=== PATIENT | female | born 1950 | race Caucasian/White ===

== ENCOUNTER 2017-07-01 10:11 | Emergency (ER) | payer MEDICARE ==
[2017-07-01 10:40] VITALS: BP 118/63
--- NOTE | 2017-07-01 11:44 | UC ---
Respiratory Complaint HPI - HPI Summary HPI Summary: OVER A WEEK OF SINUS PRESSURE, NASAL CONGESTION, DRAINAGE AND EAR PAIN. IS CURRENTLY TAKING CIPRO 250MG BID FOR UTI. IS ON DAY 2 OF 3. HAS BEEN USING NASAL SPRAYS FOR THE PAST WEEK BUT STOPPED SHE HAS HAD BLOODY NASAL MUCUS FOR PAST COUPLE OF DAYS. - History of Current Complaint Chief Complaint: UCRespiratory Stated Complaint: SINUS ISSUE Time Seen by Provider: 07/01/17 11:26 Hx Obtained From: Patient Onset/Duration: Gradual Onset, Lasting Days, Still Present Timing: Constant Severity Initially: Moderate Severity Currently: Moderate Pain Intensity: 0 Pain Scale Used: 0-10 Numeric Character: Cough: Nonproductive Aggravating Factors: Recumbent Position Alleviating Factors: Nothing Associated Signs And Symptoms: Positive: URI, Nasal Congestion, Sinus Discomfort. Negative: Dyspnea, Wheezing, Hemoptysis - Allergies/Home Medications Allergies/Adverse Reactions: Allergies Allergy/AdvReac Type Severity Reaction Status Date / Time Acetaminophen Allergy Vomiting Verified 07/01/17 10:40 Morphine Allergy Itching Verified 07/01/17 10:40 contrast dye Allergy Hives Uncoded 07/01/17 10:40 PMH/Surg Hx/FS Hx/Imm Hx Endocrine History: Dyslipidemia Psychological History: Bipolar Disorder - Surgical History Surgical History: Yes Surgery Procedure, Year, and Place: laminectomy 30+yrs ago. hysterectomy. breast reduction. vein ligation. bladder repair. spinal stenosis March 2014. right knee meniscus repair March 2014 - Family History Known Family History: Positive: Hypertension - Social History Alcohol Use: Occasionally Alcohol Amount: beer Substance Use Type: None Smoking Status (MU): Former Smoker Have You Smoked in the Last Year: No When Did the Patient Quit Smoking/Using Tobacco: age 33 Review of Systems Constitutional: Negative ENT: Ear Ache, Nasal Discharge Respiratory: Cough Cardiovascular: Negative Gastrointestinal: Negative All Other Systems Reviewed And Are Negative: Yes Physical Exam Triage Information Reviewed: Yes Appearance: No Pain Distress, Well-Nourished, Ill-Appearing - MILD Vital Signs: Initial Vital Signs Temp 99.1 F 07/01/17 10:36 Pulse 59 07/01/17 10:36 Resp 20 07/01/17 10:36 BP 118/63 07/01/17 10:36 Pulse Ox 96 07/01/17 10:36 Eyes: Positive: Conjunctiva Clear ENT: Positive: Hearing grossly normal, Pharynx normal, TMs normal, Other: - NASAL MUCOSA RAW AND INFLAMMED Neck: Positive: Supple, Nontender, No Lymphadenopathy Respiratory Exam: Normal Cardiovascular Exam: Normal Abdomen Description: Positive: Soft Musculoskeletal: Positive: No Edema Neurological: Positive: Alert Psychological: Positive: Age Appropriate Behavior Skin: Negative: rashes UC Diagnostic Evaluation - Laboratory O2 Sat by Pulse Oximetry: 96 Respiratory Course/Dx - Differential Dx/Diagnosis Provider Diagnoses: ACUTE RHINOSINUSITIS Discharge - Discharge Plan Condition: Stable Disposition: HOME Prescriptions: Amoxicillin/Clavulanate TAB* [Augmentin TAB 875*] 875 mg PO BID #20 tab guaiFENesin/CODIEN 100MG-10MG* [Robitussin AC 100Mg-10Mg*] 5 - 10 ml PO Q6H PRN #150 ml MDD 40ML PRN Reason: Cough Patient Education Materials: Rhinosinusitis (ED) Referrals: Светлана Massey MD [Primary Care Provider] - If Needed Additional Instructions: TRY SUDAFED TO HELP WITH YOUR NASAL CONGESTION. NO NASAL SPRAYS GIVEN YOUR IRRITATED NASAL MUCOSA. SEEK FOLLOW-UP IF YOU ARE NOT IMPROVING EXPECTED WITH TREATMENT.
== END 2017-07-01 11:55 | disposition home or self-care (01) ==
LOC: UCEAST 10:11
DX: J01.90 Acute sinusitis, unspecified (principal); F31.9 Bipolar disorder, unspecified
CPT/HCPCS: 99212; G0463

== ENCOUNTER 2018-07-18 12:22 | Emergency (ER) | payer MEDICARE ==
[2018-07-18] MEDS ORDERED: Albuterol/Ipratropium NEB.SOL* Albuterol 2.5 MG/Ipratropium 0.5 MG 3 ML INH ONE (13:45)
--- NOTE | 2018-07-18 13:51 | UC ---
Respiratory Complaint HPI - HPI Summary HPI Summary: Has been coughing with chest congestion and difficulty breathing starting 4-5 weeks ago. Feels like this happens "every year at this time" -- has been diagnosed with asthma but doesn't feel she knows how to best use her inhalers. Recently traveled to the [facility] and bought some augmentin OTC, but isn't sure what dose she was taking. Also took 20mg prednisone one day but didn' t continue because she didn't like the idea of doing these treatments without medical oversight. Today feels feverish, did not feel that prior to today - History of Current Complaint Chief Complaint: UCRespiratory Stated Complaint: COUGH Time Seen by Provider: 07/18/18 13:39 Hx Obtained From: Patient ?: No Onset/Duration: Gradual Onset, Lasting Weeks Timing: Constant Severity Initially: Mild Severity Currently: Moderate Pain Intensity: 0 Character: Cough: Productive Aggravating Factors: Deep Breaths, Recumbent Position Alleviating Factors: Bronchodilator Associated Signs And Symptoms: Positive: Fever, Wheezing - Allergies/Home Medications Allergies/Adverse Reactions: Allergies Allergy/AdvReac Type Severity Reaction Status Date / Time acetaminophen Allergy Vomiting Verified 07/18/18 12:45 morphine Allergy Itching Verified 07/18/18 12:45 contrast dye Allergy Hives Uncoded 07/18/18 12:45 Home Medications: Home Medications Budesonide/Formote 80/4.5(NF) [Symbicort 80/4.5 (NF)] 1 puff INH BID 07/18/18 [ History Confirmed 07/18/18] PMH/Surg Hx/FS Hx/Imm Hx Respiratory History: Asthma - Surgical History Surgical History: Yes Surgery Procedure, Year, and Place: laminectomy 30+yrs ago. hysterectomy. breast reduction. vein ligation. bladder repair. spinal stenosis March 2014. right knee meniscus repair March 2014 - Family History Known Family History: Positive: Hypertension - Social History Alcohol Use: Occasionally Alcohol Amount: beer Substance Use Type: None Smoking Status (MU): Former Smoker Have You Smoked in the Last Year: No When Did the Patient Quit Smoking/Using Tobacco: age 33 Review of Systems Constitutional: Fever Skin: Negative Eyes: Negative ENT: Negative Respiratory: Shortness Of Breath, Cough Cardiovascular: Negative Gastrointestinal: Negative Genitourinary: Negative Motor: Negative Neurovascular: Negative Musculoskeletal: Negative Neurological: Negative Psychological: Negative Is Patient Immunocompromised?: No All Other Systems Reviewed And Are Negative: Yes Physical Exam Triage Information Reviewed: Yes Appearance: Well-Nourished, Ill-Appearing Vital Signs: Initial Vital Signs Temp 100.1 F 07/18/18 12:41 Pulse 79 07/18/18 12:41 Resp 18 07/18/18 12:41 BP 148/80 07/18/18 12:41 Pulse Ox 93 07/18/18 12:41 Vital Signs Reviewed: Yes Eye Exam: Normal Eyes: Positive: Conjunctiva Clear ENT Exam: Normal ENT: Positive: Normal ENT inspection, Hearing grossly normal, Pharynx normal, TMs normal Neck exam: Normal Neck: Positive: Supple, Nontender, No Lymphadenopathy Respiratory: Positive: Decreased breath sounds, Wheezing, Other: - harsh constant cough Cardiovascular Exam: Normal Cardiovascular: Positive: RRR, No Murmur Neurological Exam: Normal Neurological: Positive: Alert Psychological Exam: Normal Skin Exam: Normal UC Diagnostic Evaluation - Laboratory O2 Sat by Pulse Oximetry: 93 - Radiology Xray Interpretation: Positive (See Comments) - RML consolidation Radiology Interpretation Completed By: Radiologist Re-Evaluation - Re-Evaluation First Eval Re-Evaluation Time: 14:11 - post-neb Change: Improved Comment: Air movement increased, pt reports some relief. Respiratory Course/Dx - Differential Dx/Diagnosis Differential Diagnosis/HQI/PQRI: Asthma, CHF, Exacerbation Of COPD, Lower Resp Infection Provider Diagnoses: RML pneumonia. asthma exacerbation Discharge - Sign-Out/Discharge Documenting (check all that apply): Patient Departure All imaging exams completed and their final reports reviewed: Yes - Discharge Plan Condition: Stable Disposition: HOME Prescriptions: Albuterol/Ipratropium NEB.CASEY* [Duoneb (Albuterol 2.5 MG/Ipratropium 0.5 MG)] 1 neb INH Q6H PRN #30 neb.casey PRN Reason: Wheezing Levofloxacin TAB* [Levaquin TAB*] 500 mg PO DAILY #7 tab predniSONE TAB* [Deltasone TAB*] 50 mg PO DAILY #5 tab Patient Education Materials: Pneumonia (ED) Referrals: Светлана Massey MD [Primary Care Provider] - 2 Days Additional Instructions: Start using nebulizers 3-4 times per day with your rescue inhaler as needed. Use the symbicort for now. See your primary care provider next week. If you are sicker in the mean time, please go to the emergency department for a recheck. - Billing Disposition and Condition Condition: STABLE Disposition: Home
--- NOTE | 2018-07-18 14:35 | RAD ---
HISTORY: cough x 5 weeks COMPARISONS: June 23, 2005 VIEWS: 4: Frontal dual-energy and lateral views of the chest. FINDINGS: CARDIOMEDIASTINAL SILHOUETTE: The cardiomediastinal silhouette is normal. CHRISTOPHER: The christopher are normal. PLEURA: The costophrenic angles are sharp. No pleural abnormalities are noted. LUNG PARENCHYMA: There is patchy alveolar opacification of the right lower lung on the frontal view. ABDOMEN: The upper abdomen is clear. There is no subphrenic gas. BONES AND SOFT TISSUES: Degenerative changes are noted along the spine. OTHER: None. IMPRESSION: PATCHY AIRSPACE DISEASE OF THE RIGHT LOWER LUNG. RECOMMEND FOLLOW-UP UNTIL RESOLUTION TO EXCLUDE UNDERLYING PULMONARY PARENCHYMAL PATHOLOGY.
[2018-07-18 14:48] VITALS: BP 160/80
== END 2018-07-18 14:57 | disposition home or self-care (01) ==
LOC: UCEAST 12:22
DX: J18.9 Pneumonia, unspecified organism (principal); J45.901 Unspecified asthma with (acute) exacerbation; Z88.5 Allergy status to narcotic agent; Z88.6 Allergy status to analgesic agent; Z91.041 Radiographic dye allergy status; Z87.891 Personal history of nicotine dependence
CPT/HCPCS: 71046; 99212; A9270-GY; G0463